=== PATIENT | female | born 1980 | race African-American/Black ===

== ENCOUNTER 2016-03-13 15:10 | Emergency (ER) | payer SELFPAY ==
[~2016-03-13] VITALS: Ht 152.4 cm; Wt 70.0 kg
[2016-03-13 15:12] VITALS: BP 170/90; PULSE 82; RESP 16; TEMP 98.3; O2SAT 95
[2016-03-13] MEDS ORDERED: ACETAMINOPHEN 325 MG TAB PO ONE (15:45)
[2016-03-13] MEDS ORDERED: TETANUS/DIPHTHERIA TOXOID ADULT 0.5 ML VIAL IM ONE (15:45)
--- NOTE | 2016-03-13 15:54 | PD ---
HPI Chief Complaint: Head Injury Time Seen by Provider: 15:49 Travel History International Travel<30 days: No Contact w/Intl Traveler<30days: No Traveled to known affect area: No History of Present Illness HPI 36-year-old female that presents to the ED for evaluation of head injury. 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 Per patient she did not lose consciousness. Patient does have a hematoma on the forehead with a very small superficial cut. Patient does not know her last tetanus shot. Per patient she does have a headache. Denies any blurry vision or double vision. No dizziness. No numbness, tilling, weakness. No chest pain or shortness of breath. No neck pain. No abdominal pain. No other injuries reported. Denies taking any blood thinners. Denies . States that the pain currently is 4 out of 10. She has not taken anything for this. This is worker's comp. [facility] Past Medical History Medical History: Denies Significant Hx Respiratory: Yes (asthma) ?: Not LMP: 03/07/16 Social History Alcohol Use: No Tobacco Use: No Substance Use: No Allergies-Medications (Allergen,Severity, Reaction): Coded Allergies: No Known Allergies (Unverified , 03/13/16) Review of Systems Except as stated in HPI: all other systems reviewed are Neg Physical Exam Narrative GENERAL: SKIN: Warm and dry. HEAD: Atraumatic. Normocephalic. EYES: Pupils equal and round 4 mm reactive to light and accommodation. No scleral icterus. No injection or drainage. ENT: No nasal bleeding or discharge. Mucous membranes pink and moist. Tongue is midline. No uvula deviation. NECK: Trachea midline. No JVD. CARDIOVASCULAR: Regular rate and rhythm. No murmurs, S3, S4. RESPIRATORY: No accessory muscle use. Clear to auscultation. Breath sounds equal bilaterally. GASTROINTESTINAL: Abdomen soft, non-tender, nondistended. Hepatic and splenic margins not palpable. MUSCULOSKELETAL: Extremities without clubbing, cyanosis, or edema. No obvious deformities. Full range of motion of the upper and lower extremities bilaterally. No cervical, thoracic, lumbar spine tenderness to palpation. 2+ pulses bilaterally. NEUROLOGICAL: Awake and alert. No obvious cranial nerve deficits. Motor grossly within normal limits. Five out of 5 muscle strength in the arms and legs. Normal speech. Gait normal. DTRs are 2+ bilaterally. PSYCHIATRIC: Appropriate mood and affect; insight and judgment normal. Data Data Last Documented VS Vital Signs Date Time Temp Pulse Resp B/P Pulse Ox O2 Delivery O2 Flow Rate FiO2 03/13/16 15:12 98.3 82 16 170/90 95 Room Air Orders Ed Urine Pregnancytest Poc (03/13/16 15:23) Ct Brain W/O Iv Contrast(Rout) (03/13/16 ) Wound Care (03/13/16 15:39) Acetaminophen (Tylenol) (03/13/16 15:45) Tetanus/Diphtheria Tox Adult (Tetanus/Di (03/13/16 15:45) Ice/Cold Pack (03/13/16 15:39) MDM Medical Decision Making Medical Screen Exam Complete: Yes Emergency Medical Condition: Yes Medical Record Reviewed: Yes Interpretation(s) CT head negative Differential Diagnosis Head injury versus traumatic head injury versus hematoma versus laceration Narrative Course 36-year-old female that presents to the ED for evaluation of head injury. Patient was properly examined and was found to have signs and symptoms consistent with appears to be traumatic head injury. Patient's physical exam is reassuring. Neurovascular intact. Accommodation at this time is for CT, wound care and tetanus booster as well as Tylenol for pain. She agrees for us to proceed. CT of the head was negative. Patient was pressure. Patient will be sent home with instructions to take Motrin or Tylenol for pain. Ice to the area. Patient was given prescription for basic tracing to apply to the wound to help it heal. Patient was given paperwork for her worker's comp. Told to follow closely with PCP. See ED for any worsening symptoms. Diagnosis Primary Impression: Head injury, acute Qualified Code: S09.90XA - Head injury, acute, initial encounter Patient Instructions: General Instructions Additional Instructions: Take medications as prescribed. Follow-up with PCP. See ED for any worsening symptoms. tylenol or motrin for pain as needed Apply ice to area as needed for pain Med/Other Pt SpecificInfo: Prescription(s) given Disposition: 01 DISCHARGE HOME Condition: Stable Gurdeep Burrows Mar 13, 2016 15:53
[2016-03-13 15:56] VITALS: BP 163/93; PULSE 88; RESP 20; O2SAT 98
--- NOTE | 2016-03-13 16:51 | RADRPT ---
EXAM DATE/TIME: 03/13/2016 16:31 [facility] COMPARISON: No previous studies available for comparison. INDICATIONS : Door fell on head today hematoma on forehead. RADIATION DOSE: 56.35 CTDIvol (mGy) MEDICAL HISTORY : None SURGICAL HISTORY : None. ENCOUNTER: Initial ACUITY: 1 day PAIN SCALE: 8/10 LOCATION: cranial TECHNIQUE: Multiple contiguous axial images were obtained of the head. Using automated exposure control and adj ustment of the mA and/or kV according to patient size, radiation dose was kept as low as reasonably a chievable to obtain optimal diagnostic quality images. FINDINGS: CEREBRUM: The ventricles are normal for age. No evidence of midline shift, mass lesion, hemorrhage or acute in farction. No extra-axial fluid collections are seen. POSTERIOR FOSSA: The cerebellum and brainstem are intact. The 4th ventricle is midline. The cerebellopontine angle i s unremarkable. EXTRACRANIAL: The visualized portion of the orbits is intact. SKULL: The calvaria is intact. No evidence of skull fracture. There is a focal soft tissue hematoma overlyi ng the left frontal lobe. CONCLUSION: Focal soft tissue contusion and hematoma without evidence of underlying osseous or intracranial abnor mality.. Mignon Narvaez MD on March 13, 2016 at 16:48 Board Certified Radiologist. This report was verified electronically.
[2016-03-13] MEDS ORDERED: BACT2OIN TOPICAL (16:54)
== END 2016-03-13 18:43 | disposition home or self-care (01) ==
LOC: NEPE 15:10
DX: S09.90XA Unspecified injury of head, initial encounter (principal); W20.8XXA Other cause of strike by thrown, projected or falling object, initial encounter; Y93.E9 Activity, other interior property and clothing maintenance; Y99.0 Civilian activity done for income or pay
CPT/HCPCS: 70450; 84703; 90471; 90714